=== PATIENT | male | born 1980 | race Caucasian/White ===

== ENCOUNTER 2016-10-26 14:48 | Emergency (ER) | payer MEDICAID, OTHER ==
[~2016-10-26] VITALS: Ht 188 cm; Wt 125.0 kg
[~2016-10-26 14:48] MED LIST: ALPR1TAB3 PO; BENZ1CAP8 PO; CLON0.3T PO; CYAN1000P IM; FLUC150T PO; FLUT50SP EACH NARE; FURO40TA PO; GEMF600T PO; IBUP800T23 PO; LOPE2CAP PO; LORA-520 PO; METO100T PO; OMEP40CA2 PO; VALT500T PO
[2016-10-26 14:50] VITALS: BP 130/79; PULSE 60; RESP 14; O2SAT 97
--- NOTE | 2016-10-26 16:25 | PD ---
HPI Chief Complaint: Psychiatric Symptoms Time Seen by Provider: 16:18 Travel History International Travel<30 days: No Contact w/Intl Traveler<30days: No Traveled to known affect area: No History of Present Illness HPI Patient is a 36 year old male who comes in because he would like to see a psychiatrist. He has no complaints at this time. He says he would like to speak to someone because he is having issues with DCF and his child. He denies SI or HI. He denies any medical complaints. PFSH Past Medical History Anxiety: Yes Cardiovascular Problems: Yes (HTN) High Cholesterol: Yes Hypertension: Yes Psychiatric: Yes (OCD) Integumentary: Yes (HERPES; YEAST INFECTION AXILLA) Social History Alcohol Use: No Tobacco Use: No Substance Use: No Allergies-Medications (Allergen,Severity, Reaction): Coded Allergies: Motrin (Verified Allergy, Mild, TACHYCARDIA, 10/26/16) Niacin (Verified Allergy, Mild, TACHYCARDIA, HYPERTENSION, "ON FIRE ALL OVER", 10/26/16) Sulfa (Verified Allergy, Mild, RASH, 10/26/16) Depakote (Verified Allergy, Unknown, Rash, 10/26/16) Reported Meds & Prescriptions Reported Meds & Active Scripts Active Alprazolam 1 Mg Tab 1 Mg PO TID PRN FIRST REFILL: Please use sparingly and as needed. Must be seen in clinic by appointment if needing refills. Clonidine (Clonidine HCl) 0.3 Mg Tab 2 Tab PO BID Omeprazole 40 Mg Cap 40 Mg PO DAILY Furosemide 40 Mg Tab 40 Mg PO DAILY No further refills until labs completed (09/12/16 wm) Gemfibrozil 600 Mg Tab 600 Mg PO BID Take 30 minutes prior to breakfast and dinner. Valtrex (Valacyclovir HCl) 500 Mg Tab 500 Mg PO DAILY Metoprolol Tartrate 100 Mg Tab 100 Mg PO DAILY Fluconazole 150 Mg Tab 150 Mg PO ONCE Take one tablet now and if no improvement after 7 days take one more. If no relief please return to clinic for recheck. Benzonatate 100 Mg Cap 100 Mg PO TID PRN Fluticasone Nasal Amite 50 Mcg/Act Naspr 1-2 Amite EACH NARE HS Use for 2-4 weeks then stop. Restart as needed after 2 week breaks. Ibuprofen 800 Mg Tab 800 Mg PO TID PRN Take with food. Beware that regular use can cause kidney/liver failure or stomach bleeds. Reported Lomotil (Diphenoxylate-Atropine) 2.5-0.025 Mg Tab 1 Tab PO Q8HR PRN Allergy Relief (Loratadine) 10 Mg Tab 10 Mg PO HS Cyanocobalamin Inj (Cyanocobalamin) 1,000 Mcg/Ml Inj 1,000 Mcg SQ MONTHLY Review of Systems Except as stated in HPI: all other systems reviewed are Neg General / Constitutional: No: Fever Eyes: No: Blurred Vision HENT: No: Headaches Cardiovascular: No: Chest Pain or Discomfort Respiratory: No: Shortness of Breath Gastrointestinal: No: Nausea, Vomiting Musculoskeletal: No: Myalgias, Pain Skin: No Rash, No Change in Pigmentation Neurologic: No: Weakness, Dizziness Psychiatric: No: Suicidal Ideations, Homicidal Ideation Physical Exam Narrative GENERAL: Awake and alert, in no acute distress. SKIN: Focused skin assessment warm/dry. HEAD: Atraumatic. Normocephalic. EYES: Pupils equal and round. No scleral icterus. ENT: Mucous membranes pink and moist. CARDIOVASCULAR: Regular rate and rhythm. No murmur appreciated. RESPIRATORY: No accessory muscle use. Clear to auscultation. Breath sounds equal bilaterally. NEUROLOGICAL: Awake and alert. No obvious cranial nerve deficits. Motor grossly within normal limits. Normal speech. PSYCHIATRIC: Appropriate mood and affect; insight and judgment normal. Data Data Last Documented VS Vital Signs Date Time Temp Pulse Resp B/P Pulse Ox O2 Delivery O2 Flow Rate FiO2 10/26/16 14:50 60 14 130/79 97 MDM Medical Decision Making Medical Screen Exam Complete: Yes Emergency Medical Condition: Yes Differential Diagnosis encounter to see psychiatrist Narrative Course Patient is a 36 year old male requesting to see a psychiatrist. He has no complaints at this time. He denies any SI or HI. Patient medically cleared to see psychiatry. Disposition per psychiatry. Diagnosis Primary Impression: Psychiatric symptoms Condition: Stable Celia Rouse MD Oct 26, 2016 16:24
[2016-10-26] MEDS ORDERED: CYAN1000P SQ (16:38)
[2016-10-26] MEDS ORDERED: ALLE10TA PO (16:42)
[2016-10-26] MEDS ORDERED: LOMO2.5T PO (16:43)
[2016-11-07] MEDS ORDERED: FLUC150T PO (08:13)
== END 2016-10-26 20:28 | disposition home or self-care (01) ==
LOC: NEPD 14:48
DX: F99 Mental disorder, not otherwise specified (principal)
CPT/HCPCS: 99284

== ENCOUNTER 2017-06-27 14:37 | Emergency (ER) | payer MEDICAID ==
[~2017-06-27] VITALS: Ht 182.9 cm; Wt 130.0 kg
[~2017-06-27 14:37] MED LIST changes: -BENZ1CAP8 PO; -CYAN1000P IM; +CYAN1000P SQ; -FLUC150T PO; +HYDR-3133 PO; +IBUP1TAB7 PO; -IBUP800T23 PO; -LOPE2CAP PO; -LORA-520 PO; +LORA-650 PO; +METF500T PO; -VALT500T PO
[2017-06-27 15:36] VITALS: BP 137/80; PULSE 78; RESP 18; TEMP 98.6; O2SAT 98
== END 2017-06-27 16:50 | disposition left against medical advice (07) ==
LOC: NED 14:37
DX: R60.9 Edema, unspecified (principal)
CPT/HCPCS: 99281